=== PATIENT | male | born 2000 | race Caucasian/White ===

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

== ENCOUNTER 2020-05-28 02:13 | Emergency (ER) | payer OTHER ==
[~2020-05-28] VITALS: Ht 175.3 cm; Wt 67.6 kg
--- NOTE | 2020-05-28 02:22 | PHYS DOC ---
Past History Past Medical History: Depression, Pneumonia Past Medical History Limited secondary to intoxication (SIDNEY QUEEN DO) Past Surgical History: No Surgical History Past Surgical History Limited secondary to intoxication (SIDNEY QUEEN DO) Smoking: Non-smoker Alcohol Use: Occasionally Drug Use: None Social History Limited secondary to intoxication (SIDNEY QUEEN DO) General Adult EDM: Chief Complaint: SUICIDAL IDEATION HPI: HPI: 20-year-old male presents with report of suicide attempt. Reports within the last 1 hour he drank 9 beers and ingested a total of 4 tablets of [place] 10mg/325mg and/or Percocet 5/325mg. Patient reports he had both in 1 bottle from when he had his wisdom teeth removed. Reports is unsure how much of each type he took, only that he took "4 tabs". Reports has had suicidal thoughts in the past. Reports he has not required inpatient psychiatric services in past. Reports history of depression for which he is prescribed anti-depressants. Reports he currently has "a lot of metal issues". History of present illness limited due to intoxication. (SIDNEY QUEEN DO) Review of Systems: Review of Systems: Constitutional: Denies fever or chills Neurologic: Denies headache, focal weakness or sensory changes Psychiatric: Reports suicidal ideation Review of systems limited secondary to intoxication. (SIDNEY QUEEN DO) Allergies: Allergies: Allergies Coded Allergies Type Severity Reaction Last Updated Verified No Known Drug Allergies 03/04/19 No (SIDNEY QUEEN DO) Physical Exam: PE: Constitutional: Well developed, well nourished, no acute distress, appears intoxicated HENT: Normocephalic, atraumatic Eyes: PERRL, EOMI, conjunctiva slightly injected bilaterally, no discharge, horizontal nystagmus noted Neck: Normal range of motion, supple Lungs & Thorax: Equal chest rise and fall, no respiratory distress Abdomen: Soft, no tenderness, no guarding/rebound tenderness/distention Skin: Warm, dry, no erythema, no rash Extremities: No tenderness, ROM intact, no edema Neurologic: Alert and oriented X 3, speech slurred, normal motor function, normal sensory function, no focal deficits noted Psychologic: Affect flat, judgment abnormal, reports suicidal ideation (SIDNEY QUEEN DO) EKG: EKG: @0249 NSR at 60bpm, NO ST elevation, QRS 86ms, QT/QTc 388/392ms, Q waves in II, III, and aVF and V4-V6 (SIDNEY QUEEN DO) Radiology/Procedures: Radiology/Procedures: [] (SIDNEY QUEEN DO) Course & Med Decision Making: Course & Med Decision Making Pertinent Lab studies reviewed. (See chart for details) Patient presents with report of suicidal attempt by mixing alcohol (9 beers) and narcotics (4 tabs from mixed bottle of [place] 10/325mg & Percocet 5/325mg). Notified Poison control regarding. Recommend supportive care with typical labs including 4 hour tylenol level (calculated to be 0510). EKG stable. Labs obtained and posted to chart. ETOH 78. UDS positive for opiates and alcohol. Hypokalemia addressed. 4 hour Tyelnol level pending. Plan for tele-psych evaluation once clinically sober. Patient allowed to sleep. Continue cardiac and pulse oximetry monitoring utilized. 0600- Sign out will be given to Dr. Sweeney for further evaluation and final disposition. Discussed current findings and plan with patient, who acknowledges understanding and agreement. (SIDNEY QUEEN DO) Dragon Disclaimer: Dragon Disclaimer: This electronic medical record was generated, in whole or in part, using a voice recognition dictation system. (SIDNEY QUEEN DO) Departure Departure: Impression: Primary Impression: Suicide attempt Additional Impressions: Intentional drug overdose Qualified Codes: T50.902A - Poisoning by unspecified drugs, medicaments and biological substances, intentional self-harm, initial encounter Hypokalemia Alcohol ingestion Disposition: 65 XFER TO PSYCH HOSP/UNIT Condition: STABLE Referrals: PCP,NO (PCP) Justification of Admission: Justification of Admission: Justification of Admission Dx: N/A (SIDNEY QUEEN DO) SIDNEY QUEEN DO May 28, 2020 02:22 BLU SWEENEY MD May 28, 2020 15:56
[2020-05-28] MEDS ORDERED: MVI, ADULT NO.4 WITH VIT K 10 ML, FOLIC ACID INJ 1 MG, THIAMINE INJ 100 MG in IV NORMAL... IV ONE ×4 (02:30)
[2020-05-28] MEDS ORDERED: FOLIC ACID 1 MG TABLET PO ONE (02:30)
[2020-05-28] MEDS ORDERED: MVI, ADULT NO.4 WITH VIT K 10 ML, THIAMINE INJ 100 MG in IV NORMAL SALINE 1,000ML 1,000... IV ONE ×3 (02:36)
[2020-05-28] MEDS ORDERED: THIAMINE 200 MG/2 ML VIAL. IV ONE (02:48)
[2020-05-28 02:58] LABS: BACTERIA,URINE 0 /HPF (0-FEW); BILIRUBIN,URINE NEG (NEG); CLARITY,URINE CLEAR; COLOR,URINE YELLOW; GLUCOSE,URINE NEG (NEG); NITRITE,URINE NEG (NEG); RBC,URINE 0 /HPF (0-2); SQUAMOUS EPITHELIAL CELL,UR OCC /LPF; UROBILINOGEN,URINE 0.2 mg/dL (0.2 mg/dL); WBC,URINE OCC /HPF (0-4)
[2020-05-28 02:59] LABS: CALCIUM 8.5 mg/dL (8.5-10.1); CREATININE 1.1 mg/dL (0.7-1.3); GFR 85.3; POTASSIUM 3.2 mmol/L (3.5-5.1)
[2020-05-28 03:02] LABS: BARBITURATES NEG (NEG); BENZODIAZEPINES NEG (NEG); CANNABINOIDS NEG (NEG); COCAINE NEG (NEG); METHADONE NEG (NEG); OPIATES POS (NEG); PHENCYCLIDINE NEG (NEG)
[2020-05-28 03:05] LABS: AMPHETAMINE/METHAMPHETAMINE NEG (NEG)
[2020-05-28 03:06] LABS: ALBUMIN 4.2 g/dL (3.4-5.0); ALBUMIN/GLOBULIN RATIO 1.2 (1.0-1.7); MAGNESIUM 1.9 mg/dL (1.8-2.4); TOTAL BILIRUBIN 0.4 mg/dL (0.2-1.0); TOTAL PROTEIN 7.8 g/dL (6.4-8.2)
[2020-05-28 03:08] LABS: ACETAMIN 3.6 mcg/mL (10-30); ETHANOL 78 mg/dL (0-10); SALIC < 2.8 mg/dL (2.8-20.0)
[2020-05-28 03:15] LABS: BASO % 0 % (0-3); EOS # 0.1 x10^3/uL (0.0-0.7); EOS % 2 % (0-3); HEMATOCRIT 47.4 % (39.0-53.0); HEMOGLOBIN 16.7 g/dL (13.0-17.5); LYMPH # 2.6 x10^3/uL (1.0-4.8); LYMPH % 46 % (24-48); MEAN CORPUSCULAR HEMOGLOBIN 30 pg (25-35); MEAN CORPUSCULAR HGB CONC 35 g/dL (31-37); MEAN CORPUSCULAR VOLUME 84 fL (79-100); MONO # 0.3 x10^3/uL (0.0-1.1); MONO % 6 % (0-9); NEUT # 2.6 x10^3uL (1.8-7.7); NEUT % 45 % (31-73); PLATELET COUNT 271 x10^3/uL (140-400); RED BLOOD COUNT 5.65 x10^6/uL (4.30-5.70); RED CELL DISTRIBUTION WIDTH 13.3 % (11.5-14.5); WHITE BLOOD COUNT 5.7 x10^3/uL (4.0-11.0)
[2020-05-28] MEDS ORDERED: POTASSIUM CHLORIDE 20 MEQ TABLET.ER. PO ONE (03:30)
[2020-05-28] MEDS ORDERED: NICOTINE 21MG PATCH. TD ONE ×2 (05:58→06:00)
[2020-05-28] MEDS ORDERED: NICOTINE 14MG PATCH. TD ONE (06:00)
[2020-05-28 06:20] LABS: ACETAMIN 6.3 mcg/mL (10-30)
[2020-05-28 12:30] VITALS: BP 129/73
--- NOTE | 2020-05-28 20:23 | EKG ---
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
== END 2020-05-28 13:42 | disposition home or self-care (01) ==
LOC: ER 02:13 → EEVIPCON 02:13 → ER 13:42
DX: T40.602A Poisoning by unspecified narcotics, intentional self-harm, initial encounter (principal); T39.1X2A Poisoning by 4-Aminophenol derivatives, intentional self-harm, initial encounter; T40.2X2A Poisoning by other opioids, intentional self-harm, initial encounter; T51.0X2A Toxic effect of ethanol, intentional self-harm, initial encounter; E87.6 Hypokalemia; F32.9 Major depressive disorder, single episode, unspecified; Y92.89 Other specified places as the place of occurrence of the external cause
CPT/HCPCS: 36415; 80053; 80307; 80329; 81001; 83735; 85025; 85610; 85730; 93005; 96365; 99285; G0480; J7030

== ENCOUNTER → 2020-12-02 | Outpatient (CLI) | payer BC, OTHER | LOC: LAB 10:59 | PROVIDERS: ATTEND Nurse Practitioner Family | DX: R79.89 Other specified abnormal findings of blood chemistry (principal) | CPT/HCPCS: 36415; 84484 ==

== ENCOUNTER 2021-05-01 14:26 | Emergency (ER) | payer BC ==
[~2021-05-01] VITALS: Ht 175.3 cm; Wt 66.1 kg
[2021-05-01] MEDS ORDERED: IBUPROFEN 600 MG TABLET. PO ONE (16:00)
--- NOTE | 2021-05-01 16:16 | RAD ---
Exam: Left hand 3 views INDICATION: Pain TECHNIQUE: Frontal, lateral and oblique views of the left hand Comparisons: None FINDINGS: Bone mineralization is normal. No acute or healed fractures. Soft tissues are unremarkable. Joint spa concepcion are well-maintained. IMPRESSION: No acute osseous abnormality. Electronically signed by: Rachel Serrano MD (05/01/2021 4:14 PM) [facility]
[2021-05-01 16:24] VITALS: BP 125/71
--- NOTE | 2021-05-01 16:31 | PHYS DOC ---
Past History Past Medical History: Anxiety, Asthma, Depression, Pneumonia Past Surgical History: Tonsillectomy, Other Smoking: Non-smoker Alcohol Use: Occasionally Drug Use: None Adult General Chief Complaint Chief Complaint: HAND PROBLEM HPI HPI Patient is a 21-year-old male who presents emergency department with chief complaint of left hand pain after a fall while playing soccer approximately 2 hours ago. Patient states that he slipped and fell extending his left hand out to catch himself, states that he has left hand pain now that is consistent with when he fractured his hand when he was a teenager with similar incident while playing soccer. Patient states his tetanus immunization is up-to-date. Patient reports a 5 out of 10 pain. Patient states he did not take any medications for pain or apply any ice prior to arrival to the ER. Patient denies allergies to medications, states he takes no prescription medications at home, states he does not have a a medical care provider. Patient denies loss of consciousness or hitting his head, patient denies any other physical complaints or physical injuries or physical pain. Review of Systems Review of Systems 14 body systems of review of systems have been reviewed. See HPI for pertinent positives and negative responses, otherwise all other systems are negative, nonpertinent or noncontributory. Current Medications Current Medications Current Medications Medications (Trade) Dose Ordered Sig/Glo Start Time Stop Time Status Last Admin Dose Admin Ibuprofen (Motrin) 600 mg 1X ONCE 05/01/21 16:00 05/01/21 16:01 DC 05/01/21 16:17 600 MG Allergies Allergies Allergies Coded Allergies Type Severity Reaction Last Updated Verified No Known Drug Allergies 03/04/19 No Physical Exam Physical Exam Constitutional: Well developed, well nourished, no acute distress, non-toxic appearance. 21-year-old male in no apparent distress. HENT: Normocephalic, atraumatic. Eyes: Conjunctive are normal, no discharge. Neck: Normal range of motion. Cardiovascular: No cyanosis appreciated, distal cap refill less than 2 seconds. Lungs & Thorax: She is in no respiratory distress, no adventitious lung sounds appreciated audibly. Skin: Warm, dry, no erythema, no rash. See extremity note for skin assessment. Back: No tenderness. Extremities: No tenderness, no cyanosis, no clubbing, ROM intact, no edema. Except for left hand, there is a contusion on the ventral aspect of left hand between third and fourth metacarpal, full AROM/PROM of digits, no bruising or areas of ecchymosis of the palm. No loss of sensation, distal cap refills less than 2 seconds. No crepitus appreciated. No deformity appreciated. The skin is intact. Neurologic: Alert and oriented X 3, normal motor function, normal sensory function, no focal deficits noted. Psychologic: Affect normal, judgement normal, mood normal. EKG EKG [] Radiology/Procedures Radiology/Procedures PATIENT: MARILY WHITAKER RACCOUNT: [id number] : 2000 LOCATION: ER AGE: 21 SEX: M EXAM STATUS: PRE ER ORD. PHYSICIAN: EDITA QUEZADA DO REASON: PAIN PROCEDURE: HAND LEFT 3V Exam: Left hand 3 views INDICATION: Pain TECHNIQUE: Frontal, lateral and oblique views of the left hand Comparisons: None FINDINGS: Bone mineralization is normal. No acute or healed fractures. Soft tissues are unremarkable. Joint spaces are well-maintained. IMPRESSION: No acute osseous abnormality. Electronically signed by: Rachel Nation MD (05/01/2021 4:14 PM) [facility] DICTATED AND SIGNED BY: RACHEL NATION MD DATE: 05/01/211611 CC: EDITA QUEZADA DO; PCP,NO ~MTH0 0 Heart Score C/O Chest Pain: No Risk Factors: Risk Factors: DM, Current or recent (<one month) smoker, HTN, HLP, family history of CAD, obesity. Risk Scores: Risk Factors: DM, Current or recent (<one month) smoker, HTN, HLP, family history of CAD, obesity. Course & Med Decision Making Course & Med Decision Making Pertinent Labs and Imaging studies reviewed. (See chart for details) 21-year-old male, vital signs reviewed, presents emergency department with complaints of left hand pain after falling while playing soccer approximately 2 hours prior to arrival. Physical examination concerning for left hand contusion versus fracture. Will order ice packs, 600 mg ibuprofen, x-ray of left hand. X-ray read negative for acute fracture per house radiologist interpretation. Will order Brant wrap application. Discussed findings with patient, Brant wrap application, use of Tylenol and or Motrin for aches and pains, RICE therapy, follow-up with primary care for ongoing pain management, return to ER precautions or concerns. Patient reports pain is less than a 5 now. Patient gave verbal understanding of discharge home instructions, follow-up with PCP, [facility] ER, patient was discharged home without incident. Dragon Disclaimer Dragon Disclaimer This electronic medical record was generated, in whole or in part, using a voice recognition dictation system. Departure Departure: Impression: Primary Impression: Contusion of left hand Disposition: HOME / SELF CARE / HOMELESS Condition: GOOD Referrals: PCP,NO (PCP) Patient Instructions: Contusion, Elastic Bandage and RICE Additional Instructions: You were seen today in the emergency department after injuring your left hand during your soccer game. An x-ray was performed, there were no broken bones appreciated, please use the Brant wrap that was applied for comfort, apply ice packs as directed, please use RICE therapy, this is rest, ice, compression, elevation. Please use ice packs 30 minutes on and 30 minutes off while awake. You may use [id number] Tylenol and or Motrin for aches and pains, you may follow-up with a primary care physician for ongoing pain management, you may use any primary care physician of your choice, you may consider using the [facility] group at [address] [place] [address] [place] [address], telephone number [phone]. Please return the emergency department for worsening symptoms or other concerns. EMERGENCY DEPARTMENT GENERAL DISCHARGE INSTRUCTIONS Thank you for coming to [facility] (ED) today and trusting us with you care. We trust that you had a positivie experience in our Emergency Department. If you wish to speak to the department management, you may call the director at [phone]. YOUR FOLLOW UP INSTRUCTIONS ARE FOLLOWS: 1. Do you have a private Doctor? If you do not have a private doctor, please ask for a resource list of physicians or clinics that may be able to assist you with follow up care. 2. The Emergency Physician has interpreted your x-rays. The X-Ray specialist will also review them. If there is a change in the findings, you will be notified in 48 hours when at all possible. 3. A lab test or culture has been done, your results will be reviewed and you will be notified if you need a change in treatment. ADDITIONAL INSTRUCTIONS AND INFORMATION: 1. Your care today has been supervised by a physician who is specially trained in emergency care. Many problems require more than one evaluation for a complete diagnosis and treatment. We recommend that you schedule your follow up appointment as recommended to ensure complete treatment of you illness or injury. If you are unable to obtain follow up care and continue to have a problem, or if your condition worsens, we recommend that you return to the ED. 2. We are not able to safely determine your condition over the phone nor are we able to give sound medical advice over the phone. For these safety reasons, if you call for medical advice we will ask you to come to the ED for further evaluation. 3. If you have any questions regarding these discharge instructions please call the ED at [phone]. SAFETY INFORMATION: In the interest of safety, wellness, and injury prevention; we encourage you to wear your sealbelt, if you smoke; quite smoking, and we encourage family to use a protective helmet for bicycling and other sporting events that present an increased risk for head injury. IF YOUR SYMPTOMS WORSEN OR NEW SYMPTOMS DEVELOP, OR YOU HAVE CONCERNS ABOUT YOUR CONDITION; OR IF YOUR CONDITION WORSENS WHILE YOU ARE WAITING FOR YOUR FOLLOW UP APPOINTMENT; EITHER CONTACT YOUR PRIMARY CARE DOCTOR, THE PHYSICIAN WHOSE NAME AND NUMBER YOU WERE GIVEN, OR RETURN TO THE ED IMMEDIATELY. Problem Qualifiers Primary Impression: Contusion of left hand Encounter type: initial encounter Qualified Codes: S60.222A - Contusion of left hand, initial encounter SIDNEY GUARDADO APRN May 01, 2021 16:31
== END 2021-05-01 16:44 | disposition home or self-care (01) ==
LOC: ER 14:26
DX: S60.222A Contusion of left hand, initial encounter (principal); J45.909 Unspecified asthma, uncomplicated; W18.01XA Striking against sports equipment with subsequent fall, initial encounter; Y93.66 Activity, soccer; Y92.39 Other specified sports and athletic area as the place of occurrence of the external cause; Y99.8 Other external cause status
CPT/HCPCS: 73130; 99283-25

== ENCOUNTER → 2021-07-08 | Outpatient (CLI) | payer BC, OTHER ==
--- NOTE | 2021-07-08 15:53 | RAD ---
XR KNEE 3 VIEWS_RT 07/08/2021 Reason: CHRONIC RIGHT KNEE PAIN Comparison: None Technique: 3 views of the right knee Findings: No acute fracture or dislocation. No significant degenerative changes of the joint. No knee joint eff usion. Impression: No acute osseous abnormality. Electronically signed by: Dru Cadet (07/08/2021 3:50 PM) [id number]
== END ==
LOC: RAD 09:31
DX: M25.561 Pain in right knee (principal)
CPT/HCPCS: 73562